=== PATIENT | female | born 1985 | race American Indian/Alaskan Native ===

== ENCOUNTER 2019-10-27 15:37 | Emergency (ER) | payer SELFPAY ==
[2019-10-27 16:06] VITALS: BP 132/78
--- NOTE | 2019-10-27 17:15 | Emergency Department Report ---
Blank Doc - Documentation Documentation: 34-year-old female that presents with vaginal bleeding and pelvic pain. Was s ent by her OBGYN. Pt is 11 weeks . This initial assessment/diagnostic orders/clinical plan/treatment(s) is/are subject to change based on patient's health status, clinical progression and re- assessment by fellow clinical providers in the ED. Further treatment and workup at subsequent clinical providers discretion. Patient/guardians urged not to elope from the ED as their condition may be serious if not clinically assessed and managed. Initial orders include: 1- Patient sent to [facility] for further evaluation and treatment 2- UA 3- labs 4- US OB
[2019-10-27 17:41] LABS: Hematocrit 36.6 % (30.3-42.9); Hemoglobin 13.2 gm/dl (10.1-14.3); Mean Corpuscular HGB Conc 36 % (30-34); Mean Corpuscular Volume 92 fl (79-97); Platelet Count 294 K/mm3 (140-440); Red Blood Count 3.97 M/mm3 (3.65-5.03); Red Cell Distribution Width 13.9 % (13.2-15.2)
[2019-10-27 18:33] LABS: Basophils % (Manual) 0 % (0.0-1.8); Eosinophils % (Manual) 0 % (0.0-4.3); Total Cells Counted 100
[2019-10-27 18:35] LABS: Anisocytosis 1+
[2019-10-27 19:02] LABS: Bilirubin,Urine NEG (Negative); Blood,Urine LG (Negative); Color,Urine Yellow (Yellow); Mucus,Urine 1+ /HPF
[2019-10-27 19:05] LABS: RBC,Urine > 182.0 /HPF (0.0-6.0)
--- NOTE | 2019-10-27 19:34 | Ultrasound Report ---
ULTRASOUND OBSTETRIC INDICATION / CLINICAL INFORMATION: pelvic pain and vaginal bleeding. Clinical Gestational Age (GA): 11.2 weeks.days TECHNIQUE: Transabdominal. COMPARISON: None available. FINDINGS: GESTATIONAL SAC: Well-defined oval shape and intrauterine in location. YOLK SAC: No significant abnormality. EMBRYO/FETUS: No significant abnormality. - [place]-Rump Length = 4.29 cm = 11.1 weeks.days - Heart Rate, beats per minute (if present) = 168 UTERUS: - Appearance: No significant abnormality. - Size (cm): 11.0 x 9.8 x 9.8 cm - Mass or cyst: None. - Additional findings: Trace amount of fluid is seen within the lower uterine segment/cervix. ADNEXA: The right ovary measures 4.0 x 2.9 x 3.0 cm and is normal in echogenicity. There is a 1.4 cm right ovarian cyst. The left ovary measures 3.2 x 1.9 x 2.1 cm and is normal in echogenicity. There i s normal Doppler flow to both ovaries. FREE FLUID: None. ADDITIONAL FINDINGS: None. IMPRESSION: 1. Single, living intrauterine with estimated sonographic age of 11.1 weeks.days. hea rt rate is 168 bpm. 2. Small amount of fluid within the lower uterine segment/cervix. Signer Name: Reese Flowers MD Signed: 10/27/2019 7:30 PM Workstation Name: [id number]
--- NOTE | 2019-10-27 20:38 | Emergency Department Report ---
ED Female HPI - General Chief complaint: Vaginal Bleeding Stated complaint: 11 WKS PREG, BLEEDING Time Seen by Provider: 10/27/19 17:12 Source: patient Mode of arrival: Ambulatory Limitations: No Limitations - History of Present Illness Initial comments: 34-year-old F [place] female first trimester presents emergency department complaining of a sudden onset of vaginal bleeding in the form of spotting having to use 1 pad today presents emergency department complaining of the sudden onset. Associated with some vague cramping off and on but since the initiation this afternoon the symptoms have significantly improved. Ports no nausea, no vomiting, no fever, chills, sweats no chest pain, palpitations, no trauma. No hematuria or dysuria to her knowledge. No diarrhea MD Complaint: vaginal bleeding -: Gradual Location: suprapubic Radiation: non-radiating Severity: mild Quality: dull Consistency: constant Improves with: none Worsens with: none Are you Now?: Yes Associated Symptoms: vaginal bleeding - Related Data Previous Rx's Medication Instructions Recorded Last Taken Type Cyclobenzaprine [Flexeril] 10 mg PO QHS PRN #20 tablet 06/24/18 Unknown Rx Ibuprofen [Motrin] 800 mg PO Q8HR #30 tablet 06/24/18 Unknown Rx Allergies Allergy/AdvReac Type Severity Reaction Status Date / Time No Known Allergies Allergy Verified 06/24/18 03:39 ED Review of Systems ROS: Stated complaint: 11 WKS PREG, BLEEDING Other details as noted in HPI Comment: All other systems reviewed and negative ED Past Medical Hx - Past Medical History Previous Medical History?: Yes Hx Hypertension: Yes Hx Asthma: Yes - Surgical History Past Surgical History?: Yes Additional Surgical History: C section - Social History Smoking Status: Never Smoker Substance Use Type: None - Medications Home Medications: Home Medications Medication Instructions Recorded Confirmed Last Taken Type Cyclobenzaprine [Flexeril] 10 mg PO QHS PRN #20 tablet 06/24/18 Unknown Rx Ibuprofen [Motrin] 800 mg PO Q8HR #30 tablet 06/24/18 Unknown Rx ED Physical Exam - General Limitations: No Limitations General appearance: alert, in no apparent distress - Head Head exam: Present: atraumatic, normocephalic - Eye Eye exam: Present: normal appearance - ENT ENT exam: Present: mucous membranes moist - Neck Neck exam: Present: normal inspection - Respiratory Respiratory exam: Present: normal lung sounds bilaterally. Absent: respiratory distress - Cardiovascular Cardiovascular Exam: Present: regular rate, normal rhythm. Absent: systolic murmur, diastolic murmur, rubs, gallop - GI/Abdominal GI/Abdominal exam: Present: soft, normal bowel sounds - Extremities Exam Extremities exam: Present: normal inspection - Back Exam Back exam: Present: normal inspection - Neurological Exam Neurological exam: Present: alert, oriented X3 - Psychiatric Psychiatric exam: Present: normal affect, normal mood - Skin Skin exam: Present: warm, dry, intact, normal color. Absent: rash ED Course Vital Signs 10/27/19 16:06 Temperature 98.2 F Pulse Rate 76 Respiratory 16 Rate Blood Pressure 132/78 [Right] O2 Sat by Pulse 98 Oximetry ED Medical Decision Making - Lab Data Result diagrams: 10/27/19 17:29 - Radiology Data Radiology results: report reviewed Patient Name: ALMA ONEIL Gender: Female Date of : 1985 Referring Provider: RUBENS RITCHIE Organization: [facility] Accession Number: [id number] Requested Date: October 27, 2019 17:12 Report Status: Final Requested Procedure: 1 Procedure Description: US OB <= 14 weeks fetus Modality: US Findings Reporting MD: Reese Flowers Dictation Time: October 27, 2019 18:30 Lunch Counter Manager: Not available Product Coordinator Date: ULTRASOUND OBSTETRIC INDICATION / CLINICAL INFORMATION: pelvic pain and vaginal bleeding. Clinical Gestational Age (GA): 11.2 weeks.days TECHNIQUE: Transabdominal. COMPARISON: None available. FINDINGS: GESTATIONAL SAC: Well-defined oval shape and intrauterine in location. YOLK SAC: No significant abnormality. EMBRYO/FETUS: No significant abnormality. - [place]-Rump Length = 4.29 cm = 11.1 weeks.days - Heart Rate, beats per minute (if present) = 168 UTERUS: - Appearance: No significant abnormality. - Size (cm): 11.0 x 9.8 x 9.8 cm - Mass or cyst: None. - Additional findings: Trace amount of fluid is seen within the lower uterine segment/cervix. ADNEXA: The right ovary measures 4.0 x 2.9 x 3.0 cm and is normal in echogenicity. There is a 1.4 cm right ovarian cyst. The left ovary measures 3.2 x 1.9 x 2.1 cm and is normal in echogenicity. There is normal Doppler flow to both ovaries. FREE FLUID: None. ADDITIONAL FINDINGS: None. IMPRESSION: 1. Single, living intrauterine with estimated sonographic age of 11.1 weeks.days. heart rate is 168 bpm. 2. Small amount of fluid within the lower uterine segment/cervix. Signer Name: Reese Flowers MD Signed: 10/27/2019 6:30 PM Workstation Name: [id number] - Medical Decision Making This patient presents with vaginal bleeding in the first trimester, differential diagnosis includes ectopic , IUP, month threatened/inevitable , along with a completed . Patient is HDS and without a history of coagulopathy or infectious symptoms. The ultrasound does reveal an IUP at 11 weeks with an elevated hCG quant Based on exam history and ED work-up patient presentation is not consistent with an ectopic , life-threatening coagulopathy, trauma, serious bacterial infection, central process or other emergency Critical care attestation.: If time is entered above; I have spent that time in minutes in the direct care of this critically ill patient, excluding procedure time. ED Disposition Clinical Impression: Vaginal bleeding in patient after first trimester Disposition: DC-01 TO HOME OR SELFCARE Is pt being admited?: No Does the pt Need Aspirin: No Condition: Stable Instructions: Threatened Miscarriage (ED) Additional Instructions: Please be sure to follow-up with your primary care provider as we discussed in the few days to reevaluate your hCG quant Referrals: PRIMARY CAREMD [Primary Care Provider] - 3-5 Days
== END 2019-10-27 21:00 | disposition home or self-care (01) ==
LOC: ED 15:37
DX: O20.9 Hemorrhage in early pregnancy, unspecified (principal); O16.1 Unspecified maternal hypertension, first trimester; O99.511 Diseases of the respiratory system complicating pregnancy, first trimester; J45.909 Unspecified asthma, uncomplicated; Z98.890 Other specified postprocedural states; Z3A.11 11 weeks gestation of pregnancy; Z79.899 Other long term (current) drug therapy
CPT/HCPCS: 36415; 76801; 81001; 84702; 85007; 85025; 86900; 86901